=== PATIENT | male | born 1995 | race Caucasian/White ===

== ENCOUNTER 2021-06-05 04:45 | Emergency (ER) | payer OTHER, SELFPAY ==
--- NOTE | ~2021-06-05 | US_ITS ---
EXAMINATION: US scrotum doppler DATE: 06/05/2021 06:15 INDICATION: Left testicular pain TECHNIQUE: Testicular sonogram utilizing grayscale and Doppler COMPARISON: None. FINDINGS: The right testis measures 4.2 x 2.4 x 3.0 cm. The left testis measures 4.2 x 2.2 x 2.6 cm. Symmetric normal grayscale appearance to both testes. There is normal vascular flow to both testes. The right e pididymis is normal with normal vascular flow. 6 mm anechoic left epididymal cyst. The left epididymi s is otherwise normal with normal vascular flow. There is no varicocele or hydrocele. IMPRESSION: 1. Normal testicular ultrasound. Reviewed, dictated and finalized at location A. [employer]
[2021-06-05 04:53] VITALS: BP 163/101; PULSE 94; RESP 18; TEMP 36.6; O2SAT 98
[2021-06-05] MEDS: KETOROLAC 15 MG/ML VIAL (*BKC) IV PUSH (05:17)
--- NOTE | 2021-06-05 05:24 | ED.GENADULT ---
HPI - General Adult General Chief complaint: Urogenital-Male Stated complaint: groin pain since 1 am Time Seen by Provider: 06/05/21 04:48 Source: patient and RN notes reviewed Mode of arrival: ambulatory History of Present Illness HPI narrative: 25-year-old male presents to the emergency department for evaluation of left testicular pain. Patient states on Friday he had similar symptoms but they did resolve. Patient states he woke up this morning with the intense left testicular pain. Patient states pain does radiate up into his abdomen. Patient denies any nausea vomiting or diarrhea. Patient denies any painful urination. Patient denies any high risk sexual behavior. Patient denies any previous urologic issues. Patient has no prior abdominal surgical history. Related Data Allergies Allergy/AdvReac Type Severity Reaction Status Date / Time No Known Allergies Allergy Unverified 05/08/20 13:58 NKDA Allergy Unknown Uncoded 05/08/20 13:58 NKFA Allergy Unknown Uncoded 05/08/20 13:58 Review of Systems Review of Systems: CONSTITUTIONAL: Denies fever, chills, or sweats. RESPIRATORY: Denies cough or dyspnea. GASTROINTESTINAL: Some lower abdominal pain GENITOURINARY: Left testicular pain SKIN: Denies rash or itching. Exam Narrative: APPEARANCE: Well appearing, no pain, no distress, well-nourished. HEAD: normocephalic, atraumatic. RESPIRATORY: Airway patent, respirations nonlabored. Clear to auscultation bilaterally, no rales, rhonchi, wheezing. CARDIOVASCULAR: Regular rate and rhythm without murmurs rubs or gallops. ABDOMINAL: Soft, nontender, nondistended, normal bowel sounds. Normal left testicular exam. There is some left tubular tenderness to palpation. No erythema. No swelling. No scrotal edema. Left testicle is not high riding MUSCULOSKELETAL: Moves all extremities. Strength/ROM intact, No edema, No calf tenderness. Course Course Emergency Course: Left testicular ultrasound was ordered to rule out torsion. Patient was provided Toradol for pain control. Patient reports he does feel improved with treatment. NAF on ultrasound. UA pending at time of signout to Dr Jasso. Vital Signs Vital signs: Vital Signs Temperature 97.9 F 06/05/21 04:53 Pulse Rate 94 06/05/21 04:53 Respiratory Rate 18 06/05/21 04:53 Blood Pressure 163/101 H 02/08/22 04:53 Pulse Oximetry 98 06/05/21 04:53 Temperature 97.9 F 06/05/21 04:53 Pulse Rate 73 06/05/21 08:47 Respiratory Rate 18 06/05/21 08:47 Blood Pressure 136/96 H 06/05/21 08:47 Pulse Oximetry 100 06/05/21 08:47 Medical Decision Making Vital Signs Vital Signs: Vital Signs Temperature 97.9 F 06/05/21 04:53 Pulse Rate 94 06/05/21 04:53 Respiratory Rate 18 06/05/21 04:53 Blood Pressure 163/101 H 06/05/21 04:53 Pulse Oximetry 98 06/05/21 04:53 Temperature 97.9 F 06/05/21 04:53 Pulse Rate 73 06/05/21 08:47 Respiratory Rate 18 06/05/21 08:47 Blood Pressure 136/96 H 06/05/21 08:47 Pulse Oximetry 100 06/05/21 08:47 Lab Data Labs: Lab Results 06/05/21 06/05/21 Range/Units 06:55 06:55 Urine Color Yellow (Yellow) Urine Appearance Sl cloudy (Clear) Urine pH 5.0 (5.0-9.0) Ur Specific [place] 1.034 (1.001-1.035) Urine Protein 1+ H (Negative) mg/dL Urine Glucose (UA) Negative (Negative) mg/dL Urine Ketones Negative (Negative) mg/dL Ur Blood (Man) 2+ H (Negative) Urine Nitrate Negative (Negative) Urine Bilirubin Negative (Negative) Urine Urobilinogen 2.0 H (<2.0) mg/dL Leukocyte Esterase Rfl Negative (Negative) CYRIL/UL Urine RBC 21-50 H (0-2) /hpf Urine WBC 0-3 /hpf Urine Mucus Heavy H /lpf C.trachomatis RNA (TMA) Pending N.gonorrhoeae RNA (TMA) Pending Imaging Data Radiologist's impression: Stat read: Ultrasound scrotal impression: No acute findings on scrotal ultrasound. Left epididymal head cyst measuring 0.6 x 0.4 x 0
[2021-06-05 06:08] VITALS: BP 134/93; PULSE 84; RESP 18; O2SAT 98
[2021-06-05] MEDS: SODIUM CHLORIDE 0.9% IV 1,000 ML 999 ML IV CONT (06:33)
[2021-06-05 06:58] VITALS: BP 122/89; PULSE 70; RESP 16; O2SAT 99
[2021-06-05 07:20] LABS: Add Urine Microscopic? YES; Bilirubin Urine Negative (Negative); Blood Urine 2+ (Negative); Color Urine Yellow (Yellow); Glucose Urine UA Negative (Negative); Ketones Urine Negative (Negative); Leukocyte Esterase Ur Negative LEU/UL (Negative); Mucus Urine Heavy /lpf; Nitrate Urine Negative (Negative); Protein Urine 1+ mg/dL (Negative); RBC Urine 21-50 /hpf (0-2); WBC Urine 0-3 /hpf
[2021-06-05 07:45] LABS: Appearance Urine Sl Cloudy (Clear); Specific Grav Ur 1.034 (1.001-1.035)
[2021-06-05 08:47] VITALS: BP 136/96; PULSE 73; RESP 18; O2SAT 100
== END 2021-06-05 08:49 | disposition home or self-care (01) ==
PROVIDERS: Emergency Provider Emergency Medicine
DX: N50.812 Left testicular pain (principal); N50.3 Cyst of epididymis; N43.3 Hydrocele, unspecified
CPT/HCPCS: 76870; 81001; 87491; 87591; 93976; 96361; 96374; 99284; J1885; J7030

== ENCOUNTER 2022-09-20 09:55 | Emergency (ER) | payer BC, SELFPAY ==
[2022-09-20 10:06] VITALS: BP 133/83; PULSE 102; RESP 16; TEMP 36.2; O2SAT 100
--- NOTE | 2022-09-20 10:14 | ED.MALEGU ---
HPI - Male Genitourinary General Chief complaint: Urogenital-Male Stated complaint: EYE REDNESS/FLANK PAIN/BLOOD IN URINE/GROIN PAIN Time Seen by Provider: 09/20/22 10:10 Source: patient Mode of arrival: ambulatory Limitations: no limitations History of Present Illness HPI Narrative: Patient is a 27-year-old male who presents with flank pain, blood in urine, groin pain this started this morning. Also reports pelvic pressure. Patient had similar symptoms last year and was diagnosed with UTI. Patient denies any fever, chills, nausea, vomiting, diarrhea. Denies any penile pain, painful ejaculation, testicular pain, testicular swelling. Patient also having bilateral eye redness and irritation. Was diagnosed with pinkeye 2 days ago and is on treatment currently. Related Data Allergies Allergy/AdvReac Type Severity Reaction Status Date / Time No Known Allergies Allergy Verified 09/20/22 10:08 Review of Systems Review of Systems: All systems reviewed & are unremarkable except as noted in HPI and below Constitutional: Constitutional: Denies chills, Denies fever(s), Denies headache(s), Denies malaise and Denies weakness Eyes: Eyes: Denies change in vision, Reports eye discharge and Reports irritation ENT: Denies otalgia, Denies headache(s), Denies nasal congestion, Denies nasal discharge, Denies sinus pain and Denies sore throat Cardiovascular: Cardiovascular: Denies chest pain, Denies edema, Denies palpitations and Denies dyspnea Respiratory: Respiratory: Denies cough and Denies dyspnea Gastrointestinal: Gastrointestinal: Denies abdominal pain, Denies diarrhea, Denies nausea and Denies vomiting Genitourinary: Genitourinary: Reports hematuria, Denies genital pain, Reports dysuria, Reports flank pain, Denies painful ejaculations, Denies penile discharge, Denies scrotal swelling, Denies testicular pain and Reports urinary frequency Musculoskeletal: Musculoskeletal: Denies back pain and Denies numbness Integumentary/Breasts: Skin/Breast: Denies pruritus and Denies rash Neurologic: Denies headache(s), Denies numbness and Denies weakness Psychiatric: Psychiatric: Reports no additional psychiatric complaints Endocrine: Endocrine: Denies palpitations PMFSH Comments At time of signature, agree with nursing past medical, surgical, social and family history. There is no relevant family history pertinent to the presenting complaint. Exam Const: General: cooperative, healthy appearing, comfortable, no acute distress and well nourished Nutritional Appearance: well nourished Orientation/consciousness: patient oriented x3 HENMT: Head: normocephalic and atraumatic Ears: external ears normal Face/Nose/Sinus: Normal external nose present, Normal nares present and normal facial exam Face and sinus: normal facial exam Eyes: Conjunctivae: conjunctival abnormality bilateral conjunctival injection diffuse and discharge mucoid Sclera: scleral abnormality bilateral scleral injection diffuse Pupils: Equal, round and reactive pupils present EOM: EOMs intact bilaterally Neck: Neck: normal visual inspection, full ROM and supple Chest: Chest palpation & inspection: normal inspection of the chest Resp: Effort & Inspection: normal respiratory effort and able to speak in complete sentences Cardio: Rate: regular rate Rhythm: regular rhythm GI: Inspection: normal to inspection GI Palp: No abdominal tenderness and Yes Soft to palpation : General: Yes no CVA tenderness Back/Spine/Pelvis: Back: no CVA tenderness Skin: General skin exam: normal color and no rashes or lesions noted Neuro: General: patient oriented x3 and moves all extremities Cranial nerves: Yes Equal, round and reactive pupils present Extrem: General: normal to inspection and full ROM Psych: Appearance: grossly normal and well kempt Course Course Emergency Course: Patient is aware of diagnosis, understands and agrees to treatment plan. Anticipatory guidance given.
== END 2022-09-20 10:55 | disposition home or self-care (01) ==
PROVIDERS: Emergency Provider Nurse Practitioner Family
DX: N39.0 Urinary tract infection, site not specified (principal); H10.9 Unspecified conjunctivitis
CPT/HCPCS: 81003; 87086; 99213; G0463